=== PATIENT | male | born 1990 | race Asian ===

== ENCOUNTER 2016-05-30 20:03 | Emergency (ER) | payer OTHER ==
[~2016-05-30] VITALS: Ht 170.2 cm; Wt 68.0 kg
[2016-05-30 20:29] VITALS: BP 129/85
== END 2016-05-30 22:50 | disposition home or self-care (01) ==
LOC: ER 22:28
DX: T40.7X1A Poisoning by cannabis (derivatives), accidental (unintentional), initial encounter (principal); R11.2 Nausea with vomiting, unspecified; Y92.520 Airport as the place of occurrence of the external cause
CPT/HCPCS: 99283